=== PATIENT | male | born 1980 | race African-American/Black ===

== ENCOUNTER 2021-12-24 15:59 | Inpatient (IN) | payer OTHER ==
[2021-12-24 16:54] VITALS: BMI 19.4
[2021-12-24] MEDS ORDERED: MAGNESIUM CITRATE 300 ML BOTTLE PO PRN (18:55)
[2021-12-24] MEDS ORDERED: LOPERAMIDE HCL 2 MG CAPSULE PO PRN (18:55)
[2021-12-24] MEDS ORDERED: guaiFENesin 200 MG/10 ML 10 ML UNIT-DOSE CUPS PO PRN (18:55)
[2021-12-24] MEDS ORDERED: MAGNESIUM HYDROX 2400MG/30ML ORAL SUSPENSION 30 ML CUP PO PRN (18:55)
[2021-12-24] MEDS ORDERED: MAG HYDROX/AL HYDROX/SIMETH 30 ML UNIT-DOSE CUP PO PRN (18:55)
[2021-12-24] MEDS ORDERED: ACETAMINOPHEN 325 MG TABLET (FP) PO PRN (18:55)
[2021-12-24] MEDS ORDERED: P-EPHED 60MG/TRIPROLIDI 2.5MG TABLET PO PRN (18:55)
[2021-12-25] MEDS: THIAMINE HCL 100 MG TABLET (FP) PO SCH ×2 (00:59→22:02)
[2021-12-25] MEDS: MELATONIN 5 MG TABLETS PO SCH ×2 (00:59→22:02)
[2021-12-25] MEDS ORDERED: methaDONE HCL 40 MG DISPERSABLE TABLET PO SCH (08:00)
[2021-12-25] MEDS ORDERED: methaDONE HCL 10 MG TABLET ONE (09:30)
[2021-12-25] MEDS ORDERED: methaDONE HCL 40 MG DISPERSABLE TABLET ONE (09:30)
[2021-12-25] MEDS: PRENATAL VITAMINS W/ FOLIC ACID TABLET (FP) PO SCH (09:33)
[2021-12-25] MEDS: hydrOXYzine PAMOATE 50 MG CAPSULE (FP) PO PRN ×2 (09:35→22:23)
[2021-12-25 12:54] LABS: HEMATOCRIT 38.7 % (35.4-49); HEMOGLOBIN 12.8 GM/dL (11.7-16.9); MCH 29.1 pg (25.7-33.7); MEAN CELL VOLUME 88.2 fl (80-96); MEAN PLT VOLUME 7.4 fl (7.5-11.1); PLATELET COUNT 229 10^3/uL (134-434); RBC 4.39 M/mm3 (4.00-5.60); RDW 14.1 % (11.9-15.9); WHITE BLOOD COUNT 6.5 K/mm3 (4.0-10.0)
[2021-12-25 13:09] LABS: ALBUMIN 3.3 g/dl (3.4-5.0); BLOOD UREA NITROGEN 18.4 mg/dL (7-18); CALCIUM 8.9 mg/dL (8.5-10.1)
[2021-12-25 13:12] LABS: CREATININE 0.8 mg/dL (0.55-1.3)
[2021-12-25 13:14] LABS: BILIRUBIN,TOTAL 0.3 mg/dL (0.2-1); TOT PROT 5.9 g/dl (6.4-8.2)
[2021-12-25] MEDS: NICOTINE POLACRILEX 2 MG GUM BC PRN (14:53)
[2021-12-25] MEDS: NICOTINE 10 MG CARTRIDGE (INHALER) IH PRN (22:06)
[2021-12-26] MEDS ORDERED: methaDONE HCL 40 MG DISPERSABLE TABLET ONE (06:13)
[2021-12-26] MEDS ORDERED: methaDONE HCL 10 MG TABLET ONE (06:13)
[2021-12-26] MEDS: PRENATAL VITAMINS W/ FOLIC ACID TABLET (FP) PO SCH (09:48)
[2021-12-26] MEDS: hydrOXYzine PAMOATE 50 MG CAPSULE (FP) PO PRN ×2 (09:49→19:44)
[2021-12-26] MEDS: METHOCARBAMOL 500 MG TABLET PO PRN ×2 (09:49→17:40)
[2021-12-26] MEDS: NICOTINE 10 MG CARTRIDGE (INHALER) IH PRN ×2 (10:29→18:21)
[2021-12-26 21:10] LABS: URINE APPEARANCE TURBID; URINE BILIRUBIN NEGATIVE (NEGATIVE); URINE COLOR YELLOW; URINE GLUCOSE (UA) NEGATIVE (NEGATIVE); URINE KETONE NEGATIVE (NEGATIVE); URINE LEUK ESTERASE NEGATIVE (NEGATIVE); URINE NITRITE NEGATIVE (NEGATIVE); URINE PROTEIN NEGATIVE (NEGATIVE); URINE UROBILINOGEN 0.2 mg/dL (0.2-1.0)
[2021-12-26] MEDS: MELATONIN 5 MG TABLETS PO SCH (23:48)
[2021-12-26] MEDS: THIAMINE HCL 100 MG TABLET (FP) PO SCH (23:49)
[2021-12-27] MEDS: METHOCARBAMOL 500 MG TABLET PO PRN ×3 (02:00→21:11)
[2021-12-27] MEDS: hydrOXYzine PAMOATE 50 MG CAPSULE (FP) PO PRN ×3 (02:00→21:11)
[2021-12-27] MEDS ORDERED: methaDONE HCL 10 MG TABLET ONE (05:09)
[2021-12-27] MEDS ORDERED: methaDONE HCL 40 MG DISPERSABLE TABLET ONE (05:09)
[2021-12-27] MEDS: NICOTINE 10 MG CARTRIDGE (INHALER) IH PRN ×4 (07:28→23:23)
[2021-12-27] MEDS: PRENATAL VITAMINS W/ FOLIC ACID TABLET (FP) PO SCH (11:18)
[2021-12-27] MEDS: MELATONIN 5 MG TABLETS PO SCH (21:10)
[2021-12-27] MEDS: THIAMINE HCL 100 MG TABLET (FP) PO SCH (21:11)
[2021-12-28] MEDS ORDERED: methaDONE HCL 10 MG TABLET ONE (03:57)
[2021-12-28] MEDS ORDERED: methaDONE HCL 40 MG DISPERSABLE TABLET ONE (03:57)
[2021-12-28] MEDS: hydrOXYzine PAMOATE 50 MG CAPSULE (FP) PO PRN ×3 (07:01→23:11)
[2021-12-28] MEDS: METHOCARBAMOL 500 MG TABLET PO PRN ×3 (07:01→23:11)
[2021-12-28] MEDS: NICOTINE 10 MG CARTRIDGE (INHALER) IH PRN ×4 (07:03→23:15)
[2021-12-28] MEDS: PRENATAL VITAMINS W/ FOLIC ACID TABLET (FP) PO SCH (09:21)
[2021-12-28] MEDS: IBUPROFEN 400 MG TABLET (FP) PO PRN ×2 (15:49→23:10)
[2021-12-28] MEDS: THIAMINE HCL 100 MG TABLET (FP) PO SCH (23:11)
[2021-12-28] MEDS: MELATONIN 5 MG TABLETS PO SCH (23:11)
[2021-12-29] MEDS ORDERED: methaDONE HCL 10 MG TABLET ONE (06:31)
[2021-12-29] MEDS ORDERED: methaDONE HCL 40 MG DISPERSABLE TABLET ONE (06:32)
[2021-12-29] MEDS: METHOCARBAMOL 500 MG TABLET PO PRN ×2 (06:33→22:56)
[2021-12-29] MEDS: hydrOXYzine PAMOATE 50 MG CAPSULE (FP) PO PRN ×2 (06:33→22:56)
[2021-12-29] MEDS: PRENATAL VITAMINS W/ FOLIC ACID TABLET (FP) PO SCH (09:49)
[2021-12-29] MEDS: ESCITALOPRAM OXALATE 10 MG TABLET PO SCH (09:50)
[2021-12-29 13:07] LABS: SARS-CoV-2 NAA Not Detected (Not Detected)
[2021-12-29] MEDS: IBUPROFEN 400 MG TABLET (FP) PO PRN (13:26)
[2021-12-29] MEDS: NICOTINE 10 MG CARTRIDGE (INHALER) IH PRN ×3 (13:27→22:57)
[2021-12-29] MEDS: THIAMINE HCL 100 MG TABLET (FP) PO SCH (22:56)
[2021-12-29] MEDS: MELATONIN 5 MG TABLETS PO SCH (22:57)
[2021-12-30] MEDS ORDERED: methaDONE HCL 10 MG TABLET ONE (02:42)
[2021-12-30] MEDS ORDERED: methaDONE HCL 40 MG DISPERSABLE TABLET ONE (02:42)
[2021-12-30] MEDS: METHOCARBAMOL 500 MG TABLET PO PRN (06:21)
[2021-12-30] MEDS: hydrOXYzine PAMOATE 50 MG CAPSULE (FP) PO PRN ×3 (06:21→21:56)
[2021-12-30] MEDS: PRENATAL VITAMINS W/ FOLIC ACID TABLET (FP) PO SCH (09:43)
[2021-12-30] MEDS: ESCITALOPRAM OXALATE 10 MG TABLET PO SCH (09:43)
[2021-12-30] MEDS: NICOTINE 10 MG CARTRIDGE (INHALER) IH PRN ×3 (09:44→21:58)
[2021-12-30] MEDS: BACLOFEN 10 MG TABLET (FP) PO PRN ×2 (14:38→21:57)
[2021-12-30] MEDS: IBUPROFEN 600 MG TABLET (FP) PO PRN (17:51)
[2021-12-30] MEDS: MELATONIN 5 MG TABLETS PO SCH (21:56)
[2021-12-30] MEDS: THIAMINE HCL 100 MG TABLET (FP) PO SCH (21:56)
[2021-12-31] MEDS ORDERED: methaDONE HCL 10 MG TABLET ONE (03:04)
[2021-12-31] MEDS ORDERED: methaDONE HCL 40 MG DISPERSABLE TABLET ONE (03:05)
[2021-12-31] MEDS: hydrOXYzine PAMOATE 50 MG CAPSULE (FP) PO PRN ×2 (06:16→21:44)
[2021-12-31] MEDS: IBUPROFEN 600 MG TABLET (FP) PO PRN ×2 (06:16→21:49)
[2021-12-31] MEDS: BACLOFEN 10 MG TABLET (FP) PO PRN ×2 (06:19→21:43)
[2021-12-31] MEDS: ESCITALOPRAM OXALATE 10 MG TABLET PO SCH (09:46)
[2021-12-31] MEDS: PRENATAL VITAMINS W/ FOLIC ACID TABLET (FP) PO SCH (09:46)
[2021-12-31] MEDS: MELATONIN 5 MG TABLETS PO SCH (21:43)
[2021-12-31] MEDS: THIAMINE HCL 100 MG TABLET (FP) PO SCH (21:43)
[2021-12-31] MEDS: NICOTINE 10 MG CARTRIDGE (INHALER) IH PRN ×2 (21:44→23:47)
[2022-01-01] MEDS ORDERED: methaDONE HCL 10 MG TABLET ONE (05:03)
[2022-01-01] MEDS ORDERED: methaDONE HCL 40 MG DISPERSABLE TABLET ONE (05:04)
[2022-01-01] MEDS: hydrOXYzine PAMOATE 50 MG CAPSULE (FP) PO PRN ×2 (05:51→21:17)
[2022-01-01] MEDS: IBUPROFEN 600 MG TABLET (FP) PO PRN ×2 (05:51→21:18)
[2022-01-01] MEDS: BACLOFEN 10 MG TABLET (FP) PO PRN ×2 (05:52→21:17)
[2022-01-01] MEDS: PRENATAL VITAMINS W/ FOLIC ACID TABLET (FP) PO SCH (09:59)
[2022-01-01] MEDS: ESCITALOPRAM OXALATE 10 MG TABLET PO SCH (10:00)
[2022-01-01] MEDS: NICOTINE 10 MG CARTRIDGE (INHALER) IH PRN ×2 (18:48→21:19)
[2022-01-01] MEDS: MELATONIN 5 MG TABLETS PO SCH (21:17)
[2022-01-01] MEDS: THIAMINE HCL 100 MG TABLET (FP) PO SCH (21:17)
[2022-01-02] MEDS ORDERED: methaDONE HCL 10 MG TABLET ONE (06:10)
[2022-01-02] MEDS ORDERED: methaDONE HCL 40 MG DISPERSABLE TABLET ONE (06:10)
[2022-01-02] MEDS: IBUPROFEN 600 MG TABLET (FP) PO PRN ×3 (06:12→21:26)
[2022-01-02] MEDS: BACLOFEN 10 MG TABLET (FP) PO PRN ×2 (06:12→21:25)
[2022-01-02] MEDS: hydrOXYzine PAMOATE 50 MG CAPSULE (FP) PO PRN ×2 (06:12→21:25)
[2022-01-02] MEDS: ESCITALOPRAM OXALATE 10 MG TABLET PO SCH (10:11)
[2022-01-02] MEDS: PRENATAL VITAMINS W/ FOLIC ACID TABLET (FP) PO SCH (10:11)
[2022-01-02] MEDS: MELATONIN 5 MG TABLETS PO SCH (21:23)
[2022-01-02] MEDS: THIAMINE HCL 100 MG TABLET (FP) PO SCH (21:23)
[2022-01-02] MEDS: NICOTINE 10 MG CARTRIDGE (INHALER) IH PRN (21:28)
[2022-01-03] MEDS ORDERED: methaDONE HCL 10 MG TABLET ONE (03:45)
[2022-01-03] MEDS ORDERED: methaDONE HCL 40 MG DISPERSABLE TABLET ONE (03:46)
[2022-01-03] MEDS: BACLOFEN 10 MG TABLET (FP) PO PRN ×2 (06:03→21:23)
[2022-01-03] MEDS: hydrOXYzine PAMOATE 50 MG CAPSULE (FP) PO PRN ×2 (06:03→21:22)
[2022-01-03] MEDS: IBUPROFEN 600 MG TABLET (FP) PO PRN ×2 (06:07→21:21)
[2022-01-03] MEDS: PRENATAL VITAMINS W/ FOLIC ACID TABLET (FP) PO SCH (09:44)
[2022-01-03] MEDS: ESCITALOPRAM OXALATE 10 MG TABLET PO SCH (09:45)
[2022-01-03] MEDS: NICOTINE 10 MG CARTRIDGE (INHALER) IH PRN ×2 (17:23→21:23)
[2022-01-03] MEDS: MELATONIN 5 MG TABLETS PO SCH (21:21)
[2022-01-03] MEDS: THIAMINE HCL 100 MG TABLET (FP) PO SCH (21:22)
[2022-01-03] MEDS: NICOTINE POLACRILEX 2 MG GUM BC PRN (21:23)
[2022-01-04] MEDS ORDERED: methaDONE HCL 10 MG TABLET ONE (02:32)
[2022-01-04] MEDS ORDERED: methaDONE HCL 40 MG DISPERSABLE TABLET ONE (02:32)
[2022-01-04] MEDS: hydrOXYzine PAMOATE 50 MG CAPSULE (FP) PO PRN ×3 (06:29→21:29)
[2022-01-04] MEDS: BACLOFEN 10 MG TABLET (FP) PO PRN ×3 (06:29→21:29)
[2022-01-04] MEDS: IBUPROFEN 600 MG TABLET (FP) PO PRN ×2 (06:29→21:29)
[2022-01-04] MEDS: PRENATAL VITAMINS W/ FOLIC ACID TABLET (FP) PO SCH (09:49)
[2022-01-04] MEDS: ESCITALOPRAM OXALATE 10 MG TABLET PO SCH (09:49)
[2022-01-04] MEDS: NICOTINE POLACRILEX 2 MG GUM BC PRN ×2 (09:50→14:33)
[2022-01-04] MEDS: NICOTINE 10 MG CARTRIDGE (INHALER) IH PRN ×3 (09:51→19:47)
[2022-01-04] MEDS: THIAMINE HCL 100 MG TABLET (FP) PO SCH (21:28)
[2022-01-04] MEDS: MELATONIN 5 MG TABLETS PO SCH (21:29)
[2022-01-05] MEDS ORDERED: methaDONE HCL 40 MG DISPERSABLE TABLET ONE (02:40)
[2022-01-05] MEDS ORDERED: methaDONE HCL 10 MG TABLET ONE (02:40)
[2022-01-05] MEDS: hydrOXYzine PAMOATE 50 MG CAPSULE (FP) PO PRN ×2 (06:40→21:19)
[2022-01-05] MEDS: IBUPROFEN 600 MG TABLET (FP) PO PRN ×2 (06:40→21:19)
[2022-01-05] MEDS: NICOTINE 10 MG CARTRIDGE (INHALER) IH PRN ×2 (06:45→21:20)
[2022-01-05] MEDS: NICOTINE POLACRILEX 2 MG GUM BC PRN (06:46)
[2022-01-05] MEDS: ESCITALOPRAM OXALATE 10 MG TABLET PO SCH (10:16)
[2022-01-05] MEDS: PRENATAL VITAMINS W/ FOLIC ACID TABLET (FP) PO SCH (10:16)
[2022-01-05] MEDS: MELATONIN 5 MG TABLETS PO SCH (21:19)
[2022-01-05] MEDS: THIAMINE HCL 100 MG TABLET (FP) PO SCH (21:19)
[2022-01-05] MEDS: BACLOFEN 10 MG TABLET (FP) PO PRN (21:19)
[2022-01-06] MEDS ORDERED: methaDONE HCL 40 MG DISPERSABLE TABLET ONE (03:55)
[2022-01-06] MEDS ORDERED: methaDONE HCL 10 MG TABLET ONE (03:55)
[2022-01-06] MEDS: hydrOXYzine PAMOATE 50 MG CAPSULE (FP) PO PRN ×2 (06:03→21:21)
[2022-01-06] MEDS: BACLOFEN 10 MG TABLET (FP) PO PRN ×2 (06:05→21:26)
[2022-01-06] MEDS: IBUPROFEN 600 MG TABLET (FP) PO PRN ×2 (06:11→21:22)
[2022-01-06] MEDS: PRENATAL VITAMINS W/ FOLIC ACID TABLET (FP) PO SCH (09:48)
[2022-01-06] MEDS: ESCITALOPRAM OXALATE 10 MG TABLET PO SCH (09:48)
[2022-01-06] MEDS: NICOTINE 10 MG CARTRIDGE (INHALER) IH PRN ×2 (09:50→16:34)
[2022-01-06] MEDS: MELATONIN 5 MG TABLETS PO SCH (21:21)
[2022-01-06] MEDS: THIAMINE HCL 100 MG TABLET (FP) PO SCH (21:22)
[2022-01-07] MEDS ORDERED: methaDONE HCL 40 MG DISPERSABLE TABLET ONE (06:16)
[2022-01-07] MEDS ORDERED: methaDONE HCL 10 MG TABLET ONE (06:16)
[2022-01-07] MEDS: hydrOXYzine PAMOATE 50 MG CAPSULE (FP) PO PRN ×3 (06:41→21:19)
[2022-01-07] MEDS: IBUPROFEN 600 MG TABLET (FP) PO PRN ×3 (06:41→21:19)
[2022-01-07] MEDS: BACLOFEN 10 MG TABLET (FP) PO PRN ×3 (06:42→21:20)
[2022-01-07] MEDS: NICOTINE 10 MG CARTRIDGE (INHALER) IH PRN ×3 (06:47→21:19)
[2022-01-07] MEDS: PRENATAL VITAMINS W/ FOLIC ACID TABLET (FP) PO SCH (09:38)
[2022-01-07] MEDS: ESCITALOPRAM OXALATE 10 MG TABLET PO SCH (09:38)
[2022-01-07] MEDS: THIAMINE HCL 100 MG TABLET (FP) PO SCH (21:20)
[2022-01-07] MEDS: MELATONIN 5 MG TABLETS PO SCH (21:20)
[2022-01-08] MEDS ORDERED: methaDONE HCL 10 MG TABLET ONE (02:41)
[2022-01-08] MEDS ORDERED: methaDONE HCL 40 MG DISPERSABLE TABLET ONE (02:41)
[2022-01-08] MEDS: hydrOXYzine PAMOATE 50 MG CAPSULE (FP) PO PRN ×3 (06:35→23:08)
[2022-01-08] MEDS: IBUPROFEN 600 MG TABLET (FP) PO PRN ×3 (06:35→23:07)
[2022-01-08] MEDS: BACLOFEN 10 MG TABLET (FP) PO PRN (06:35)
[2022-01-08] MEDS: NICOTINE 10 MG CARTRIDGE (INHALER) IH PRN ×3 (06:37→22:40)
[2022-01-08] MEDS: ESCITALOPRAM OXALATE 10 MG TABLET PO SCH (09:54)
[2022-01-08] MEDS: PRENATAL VITAMINS W/ FOLIC ACID TABLET (FP) PO SCH (09:54)
[2022-01-08] MEDS: METHOCARBAMOL 500 MG TABLET PO PRN ×2 (17:02→23:09)
[2022-01-08] MEDS: THIAMINE HCL 100 MG TABLET (FP) PO SCH (21:11)
[2022-01-08] MEDS: SUVOREXANT 10 MG TABLET PO PRN (21:15)
[2022-01-09] MEDS ORDERED: methaDONE HCL 10 MG TABLET ONE (06:26)
[2022-01-09] MEDS ORDERED: methaDONE HCL 40 MG DISPERSABLE TABLET ONE (06:26)
[2022-01-09] MEDS: METHOCARBAMOL 500 MG TABLET PO PRN ×3 (06:30→21:18)
[2022-01-09] MEDS: ESCITALOPRAM OXALATE 10 MG TABLET PO SCH (09:53)
[2022-01-09] MEDS: PRENATAL VITAMINS W/ FOLIC ACID TABLET (FP) PO SCH (09:53)
[2022-01-09] MEDS: IBUPROFEN 600 MG TABLET (FP) PO PRN ×2 (09:55→21:19)
[2022-01-09] MEDS: hydrOXYzine PAMOATE 50 MG CAPSULE (FP) PO PRN ×2 (09:55→21:18)
[2022-01-09] MEDS: THIAMINE HCL 100 MG TABLET (FP) PO SCH (21:18)
[2022-01-09] MEDS: SUVOREXANT 10 MG TABLET PO PRN (21:20)
[2022-01-09] MEDS: NICOTINE 10 MG CARTRIDGE (INHALER) IH PRN (21:21)
[2022-01-10] MEDS ORDERED: methaDONE HCL 10 MG TABLET ONE (02:42)
[2022-01-10] MEDS ORDERED: methaDONE HCL 40 MG DISPERSABLE TABLET ONE (02:43)
[2022-01-10] MEDS: NICOTINE 10 MG CARTRIDGE (INHALER) IH PRN ×3 (06:31→21:25)
[2022-01-10] MEDS: METHOCARBAMOL 500 MG TABLET PO PRN ×2 (06:32→21:23)
[2022-01-10] MEDS: PRENATAL VITAMINS W/ FOLIC ACID TABLET (FP) PO SCH (10:00)
[2022-01-10] MEDS: ESCITALOPRAM OXALATE 10 MG TABLET PO SCH (10:00)
[2022-01-10] MEDS: hydrOXYzine PAMOATE 50 MG CAPSULE (FP) PO PRN ×2 (10:01→21:22)
[2022-01-10] MEDS: IBUPROFEN 600 MG TABLET (FP) PO PRN ×2 (10:01→21:22)
[2022-01-10] MEDS: THIAMINE HCL 100 MG TABLET (FP) PO SCH (21:22)
[2022-01-10] MEDS: SUVOREXANT 10 MG TABLET PO PRN (21:24)
[2022-01-11] MEDS ORDERED: methaDONE HCL 10 MG TABLET ONE (04:00)
[2022-01-11] MEDS ORDERED: methaDONE HCL 40 MG DISPERSABLE TABLET ONE (04:01)
[2022-01-11] MEDS: NICOTINE 10 MG CARTRIDGE (INHALER) IH PRN ×2 (06:55→21:40)
[2022-01-11] MEDS: METHOCARBAMOL 500 MG TABLET PO PRN ×2 (06:55→21:38)
[2022-01-11] MEDS: IBUPROFEN 600 MG TABLET (FP) PO PRN ×2 (06:56→21:38)
[2022-01-11] MEDS: hydrOXYzine PAMOATE 50 MG CAPSULE (FP) PO PRN ×2 (06:57→21:38)
[2022-01-11] MEDS: ESCITALOPRAM OXALATE 10 MG TABLET PO SCH (10:55)
[2022-01-11] MEDS: PRENATAL VITAMINS W/ FOLIC ACID TABLET (FP) PO SCH (10:55)
[2022-01-11] MEDS: THIAMINE HCL 100 MG TABLET (FP) PO SCH (21:38)
[2022-01-11] MEDS: SUVOREXANT 10 MG TABLET PO PRN (21:38)
[2022-01-12] MEDS ORDERED: methaDONE HCL 10 MG TABLET ONE (04:49)
[2022-01-12] MEDS ORDERED: methaDONE HCL 40 MG DISPERSABLE TABLET ONE (04:49)
[2022-01-12] MEDS: hydrOXYzine PAMOATE 50 MG CAPSULE (FP) PO PRN ×3 (06:08→21:20)
[2022-01-12] MEDS: IBUPROFEN 600 MG TABLET (FP) PO PRN ×3 (06:08→21:19)
[2022-01-12] MEDS: METHOCARBAMOL 500 MG TABLET PO PRN ×3 (06:08→21:19)
[2022-01-12] MEDS: NICOTINE 10 MG CARTRIDGE (INHALER) IH PRN ×3 (06:57→21:19)
[2022-01-12] MEDS: ESCITALOPRAM OXALATE 10 MG TABLET PO SCH (10:09)
[2022-01-12] MEDS: PRENATAL VITAMINS W/ FOLIC ACID TABLET (FP) PO SCH (10:09)
[2022-01-12] MEDS: SUVOREXANT 10 MG TABLET PO PRN (21:19)
[2022-01-12] MEDS: THIAMINE HCL 100 MG TABLET (FP) PO SCH (21:20)
[2022-01-13] MEDS ORDERED: methaDONE HCL 40 MG DISPERSABLE TABLET ONE (02:50)
[2022-01-13] MEDS ORDERED: methaDONE HCL 10 MG TABLET ONE (02:50)
[2022-01-13] MEDS: METHOCARBAMOL 500 MG TABLET PO PRN ×2 (07:49→21:27)
[2022-01-13] MEDS: PRENATAL VITAMINS W/ FOLIC ACID TABLET (FP) PO SCH (10:05)
[2022-01-13] MEDS: ESCITALOPRAM OXALATE 10 MG TABLET PO SCH (10:05)
[2022-01-13] MEDS: hydrOXYzine PAMOATE 50 MG CAPSULE (FP) PO PRN ×2 (10:06→21:25)
[2022-01-13] MEDS: NICOTINE 10 MG CARTRIDGE (INHALER) IH PRN (21:25)
[2022-01-13] MEDS: THIAMINE HCL 100 MG TABLET (FP) PO SCH (21:25)
[2022-01-13] MEDS: IBUPROFEN 600 MG TABLET (FP) PO PRN (21:25)
[2022-01-13] MEDS: SUVOREXANT 10 MG TABLET PO PRN (21:27)
[2022-01-14] MEDS: NICOTINE 10 MG CARTRIDGE (INHALER) IH PRN ×3 (00:22→21:19)
[2022-01-14] MEDS ORDERED: methaDONE HCL 40 MG DISPERSABLE TABLET ONE (02:48)
[2022-01-14] MEDS ORDERED: methaDONE HCL 10 MG TABLET ONE (02:48)
[2022-01-14] MEDS: METHOCARBAMOL 500 MG TABLET PO PRN ×3 (06:31→21:17)
[2022-01-14] MEDS: PRENATAL VITAMINS W/ FOLIC ACID TABLET (FP) PO SCH (10:20)
[2022-01-14] MEDS: ESCITALOPRAM OXALATE 10 MG TABLET PO SCH (10:20)
[2022-01-14] MEDS: IBUPROFEN 600 MG TABLET (FP) PO PRN ×2 (10:21→21:18)
[2022-01-14] MEDS: hydrOXYzine PAMOATE 50 MG CAPSULE (FP) PO PRN ×2 (10:22→21:17)
[2022-01-14] MEDS: THIAMINE HCL 100 MG TABLET (FP) PO SCH (21:17)
[2022-01-14] MEDS ORDERED: SUVOREXANT 10 MG TABLET PO PRN (22:00)
[2022-01-15] MEDS ORDERED: methaDONE HCL 40 MG DISPERSABLE TABLET ONE (02:51)
[2022-01-15] MEDS ORDERED: methaDONE HCL 10 MG TABLET ONE (02:51)
[2022-01-15] MEDS: METHOCARBAMOL 500 MG TABLET PO PRN ×3 (07:56→21:46)
[2022-01-15] MEDS: ESCITALOPRAM OXALATE 10 MG TABLET PO SCH (09:59)
[2022-01-15] MEDS: hydrOXYzine PAMOATE 50 MG CAPSULE (FP) PO PRN ×2 (09:59→21:47)
[2022-01-15] MEDS: PRENATAL VITAMINS W/ FOLIC ACID TABLET (FP) PO SCH (09:59)
[2022-01-15] MEDS: NICOTINE 10 MG CARTRIDGE (INHALER) IH PRN ×2 (12:32→21:52)
[2022-01-15] MEDS: MELATONIN 5 MG TABLETS PO SCH (21:46)
[2022-01-15] MEDS: IBUPROFEN 600 MG TABLET (FP) PO PRN (21:46)
[2022-01-15] MEDS: THIAMINE HCL 100 MG TABLET (FP) PO SCH (21:52)
[2022-01-16] MEDS ORDERED: methaDONE HCL 10 MG TABLET ONE (04:51)
[2022-01-16] MEDS ORDERED: methaDONE HCL 40 MG DISPERSABLE TABLET ONE (04:52)
[2022-01-16] MEDS: NICOTINE 10 MG CARTRIDGE (INHALER) IH PRN ×3 (05:27→19:24)
[2022-01-16] MEDS: METHOCARBAMOL 500 MG TABLET PO PRN ×2 (05:42→21:19)
[2022-01-16] MEDS: PRENATAL VITAMINS W/ FOLIC ACID TABLET (FP) PO SCH (10:15)
[2022-01-16] MEDS: ESCITALOPRAM OXALATE 10 MG TABLET PO SCH (10:15)
[2022-01-16] MEDS: hydrOXYzine PAMOATE 50 MG CAPSULE (FP) PO PRN ×2 (10:15→21:19)
[2022-01-16] MEDS: MELATONIN 5 MG TABLETS PO SCH (21:18)
[2022-01-16] MEDS: IBUPROFEN 400 MG TABLET (FP) PO PRN (21:18)
[2022-01-16] MEDS: THIAMINE HCL 100 MG TABLET (FP) PO SCH (21:19)
[2022-01-17] MEDS ORDERED: methaDONE HCL 40 MG DISPERSABLE TABLET ONE (04:00)
[2022-01-17] MEDS ORDERED: methaDONE HCL 10 MG TABLET ONE (04:00)
[2022-01-17] MEDS: METHOCARBAMOL 500 MG TABLET PO PRN ×2 (06:40→21:40)
[2022-01-17] MEDS: hydrOXYzine PAMOATE 50 MG CAPSULE (FP) PO PRN ×2 (06:40→21:40)
[2022-01-17] MEDS: PRENATAL VITAMINS W/ FOLIC ACID TABLET (FP) PO SCH (09:31)
[2022-01-17] MEDS: NICOTINE 10 MG CARTRIDGE (INHALER) IH PRN ×2 (09:31→21:40)
[2022-01-17] MEDS: ESCITALOPRAM OXALATE 10 MG TABLET PO SCH (09:31)
[2022-01-17] MEDS: MELATONIN 5 MG TABLETS PO SCH (21:39)
[2022-01-17] MEDS: THIAMINE HCL 100 MG TABLET (FP) PO SCH (21:40)
[2022-01-17] MEDS: IBUPROFEN 400 MG TABLET (FP) PO PRN (21:41)
[2022-01-18] MEDS ORDERED: methaDONE HCL 10 MG TABLET ONE (02:55)
[2022-01-18] MEDS ORDERED: methaDONE HCL 40 MG DISPERSABLE TABLET ONE (02:56)
[2022-01-18] MEDS: METHOCARBAMOL 500 MG TABLET PO PRN ×2 (06:53→21:21)
[2022-01-18] MEDS: ESCITALOPRAM OXALATE 10 MG TABLET PO SCH (09:56)
[2022-01-18] MEDS: PRENATAL VITAMINS W/ FOLIC ACID TABLET (FP) PO SCH (09:56)
[2022-01-18] MEDS: hydrOXYzine PAMOATE 50 MG CAPSULE (FP) PO PRN ×2 (09:57→21:21)
[2022-01-18] MEDS: THIAMINE HCL 100 MG TABLET (FP) PO SCH (21:21)
[2022-01-18] MEDS: MELATONIN 5 MG TABLETS PO SCH (21:21)
[2022-01-18] MEDS: NICOTINE 10 MG CARTRIDGE (INHALER) IH PRN (21:22)
[2022-01-18] MEDS: IBUPROFEN 400 MG TABLET (FP) PO PRN (21:22)
[2022-01-19] MEDS ORDERED: methaDONE HCL 10 MG TABLET ONE (04:39)
[2022-01-19] MEDS ORDERED: methaDONE HCL 40 MG DISPERSABLE TABLET ONE (04:39)
[2022-01-19] MEDS: METHOCARBAMOL 500 MG TABLET PO PRN ×2 (07:46→21:22)
[2022-01-19] MEDS: NICOTINE 10 MG CARTRIDGE (INHALER) IH PRN (09:47)
[2022-01-19] MEDS: ESCITALOPRAM OXALATE 10 MG TABLET PO SCH (09:47)
[2022-01-19] MEDS: PRENATAL VITAMINS W/ FOLIC ACID TABLET (FP) PO SCH (09:47)
[2022-01-19] MEDS: hydrOXYzine PAMOATE 50 MG CAPSULE (FP) PO PRN ×2 (09:48→21:22)
[2022-01-19] MEDS: MELATONIN 5 MG TABLETS PO SCH (21:22)
[2022-01-19] MEDS: THIAMINE HCL 100 MG TABLET (FP) PO SCH (21:22)
[2022-01-19] MEDS: IBUPROFEN 400 MG TABLET (FP) PO PRN (21:22)
[2022-01-20] MEDS ORDERED: methaDONE HCL 40 MG DISPERSABLE TABLET ONE (03:01)
[2022-01-20] MEDS ORDERED: methaDONE HCL 10 MG TABLET ONE (03:01)
[2022-01-20] MEDS: METHOCARBAMOL 500 MG TABLET PO PRN ×2 (06:33→21:22)
[2022-01-20] MEDS: NICOTINE 10 MG CARTRIDGE (INHALER) IH PRN ×3 (06:34→21:24)
[2022-01-20] MEDS: ESCITALOPRAM OXALATE 10 MG TABLET PO SCH (10:04)
[2022-01-20] MEDS: PRENATAL VITAMINS W/ FOLIC ACID TABLET (FP) PO SCH (10:04)
[2022-01-20] MEDS: hydrOXYzine PAMOATE 50 MG CAPSULE (FP) PO PRN ×2 (10:07→21:22)
[2022-01-20] MEDS: THIAMINE HCL 100 MG TABLET (FP) PO SCH (21:22)
[2022-01-20] MEDS: IBUPROFEN 400 MG TABLET (FP) PO PRN (21:22)
[2022-01-20] MEDS: MELATONIN 5 MG TABLETS PO SCH (21:23)
[2022-01-21] MEDS ORDERED: methaDONE HCL 10 MG TABLET ONE (03:08)
[2022-01-21] MEDS ORDERED: methaDONE HCL 40 MG DISPERSABLE TABLET ONE (03:08)
[2022-01-21] MEDS: METHOCARBAMOL 500 MG TABLET PO PRN ×2 (07:02→21:19)
[2022-01-21] MEDS: hydrOXYzine PAMOATE 50 MG CAPSULE (FP) PO PRN ×2 (09:46→21:19)
[2022-01-21] MEDS: ESCITALOPRAM OXALATE 10 MG TABLET PO SCH (09:46)
[2022-01-21] MEDS: PRENATAL VITAMINS W/ FOLIC ACID TABLET (FP) PO SCH (09:46)
[2022-01-21] MEDS: IBUPROFEN 400 MG TABLET (FP) PO PRN (21:19)
[2022-01-21] MEDS: THIAMINE HCL 100 MG TABLET (FP) PO SCH (21:19)
[2022-01-21] MEDS: NICOTINE 10 MG CARTRIDGE (INHALER) IH PRN (21:22)
[2022-01-21] MEDS: MELATONIN 5 MG TABLETS PO SCH (21:22)
[2022-01-22] MEDS ORDERED: methaDONE HCL 10 MG TABLET ONE (03:15)
[2022-01-22] MEDS ORDERED: methaDONE HCL 40 MG DISPERSABLE TABLET ONE (03:15)
[2022-01-22] MEDS: METHOCARBAMOL 500 MG TABLET PO PRN (06:52)
[2022-01-22] MEDS: hydrOXYzine PAMOATE 50 MG CAPSULE (FP) PO PRN (06:52)
[2022-01-22 07:24] VITALS: BP 119/75; PULSE 73; TEMP 97.7
[2022-01-22] MEDS: PRENATAL VITAMINS W/ FOLIC ACID TABLET (FP) PO SCH (09:42)
[2022-01-22] MEDS: NICOTINE 10 MG CARTRIDGE (INHALER) IH PRN (09:43)
== END 2022-01-22 10:15 | disposition home or self-care (01) | DRG 772 ==
LOC: YASAS 15:59 → Y5N 23:21
PROVIDERS: ADMIT Allergy & Immunology; ATTEND Allergy & Immunology
PROC: HZ42ZZZ Group Counseling for Substance Abuse Treatment, Cognitive-Behavioral (ICD-10-PCS; principal; 2021-12-24)
DX: F10.20 Alcohol dependence, uncomplicated (principal); F11.20 Opioid dependence, uncomplicated; F14.20 Cocaine dependence, uncomplicated; F17.210 Nicotine dependence, cigarettes, uncomplicated; F19.280 Other psychoactive substance dependence with psychoactive substance-induced anxiety disorder; F19.24 Other psychoactive substance dependence with psychoactive substance-induced mood disorder; F43.10 Post-traumatic stress disorder, unspecified; J45.20 Mild intermittent asthma, uncomplicated; M25.562 Pain in left knee; G89.29 Other chronic pain; Z99.89 Dependence on other enabling machines and devices; Z56.0 Unemployment, unspecified; Z59.00 Homelessness unspecified
CPT/HCPCS: 36415; 73560-TC-RT-FY; 80053; 81003; 85027; 86780; 87811; C9803-CS; J0475; U0003; U0005